=== PATIENT | male | born 1980 | race Caucasian/White ===

== ENCOUNTER 2018-09-17 11:58 | Emergency (ER) | payer OTHER ==
[~2018-09-17] VITALS: Ht 170.2 cm; Wt 80.0 kg
[2018-09-17] MEDS ORDERED: LORAZEPAM 2 MG INJ IM ONE (12:00)
--- NOTE | 2018-09-17 12:04 | ERD ---
ER Documentation Chief Complaint Chief Complaint Medical clearance HPI This is a 38-year-old man with a history of methamphetamine and drug abuse brought in by [employer] officers for medical clearance after violating a restraining order his mother had placed on him. Upon [employer] officer arrival to the scene he was agitated and somewhat combative but denies suicidal homicidal ideation. He had no trauma or falls and was transported here to help control symptoms. ROS All systems reviewed and are negative except as per history of present illness. FmHx Family History: No diabetes Physical Exam Vitals Vital Signs Date Temp Pulse Resp B/P (MAP) Pulse Ox O2 O2 Flow FiO2 Time Delivery Rate 09/17/18 155 20 161/107 97 Room Air 12:26 (125) 09/17/18 97.9 20 12:10 Per nurse's records Physical Exam GENERAL: Well-developed, well-nourished, agitated appears intoxicated, afebrile HEENT: Moist mucous membranes, pink conjunctiva, no cervical spine tenderness or step-off deformities NEURO: Alert and oriented 3, cranial nerves II through XII intact bilaterally, gait normal, agitated, moving all extremities, no focal deficits CARDIAC: Tachycardic and regular no murmurs rubs or gallops LUNGS: Clear bilaterally no wheezing crackles or stridor SKIN: Warm and dry to touch, no abrasions, contusions, or hematomas, no lacerations, no ecchymosis, no target lesions, and without ulcers EXTREMITIES: No clubbing cyanosis or edema, calves are bilaterally symmetrical, no Homans sign, no popliteal cord sign. Distal pulses equal and bilateral PSYCH: Agitated Results 24 hrs Current Medications Medications Dose Sig/Portia Start Time Status Last (Trade) Ordered Route PRN Stop Time Admin Dose Reason Admin Lorazepam 1 mg ONCE ONCE 09/17/18 DC 09/17/18 (Ativan) IM 12:00 12:09 09/17/18 12:01 Procedures/MDM I administered lorazepam 1 mg IM x1 Patient's initial tachycardia and hypertension improved, it appears intoxicated with methamphetamines and does have a history of drug abuse. He has no signs of injury or trauma he is afebrile and looks well, his tachycardia improved and he will be discharged and is okay to book. Patient discharged under [employer] custody Differential diagnoses considered, included but not limited to acute coronary syndrome, pulmonary embolism, aortic dissection, abdominal aortic aneurysm, sepsis, stroke, meningitis, encephalitis, pneumonia, appendicitis, cholecystitis, bowel obstruction, pyelonephritis, nephrolithiasis, cystitis, as well as metabolic, hematologic, and electrolyte abnormalities. As well as abscess, cellulitis, fractures, and dislocations. Patient feels much better at this time, and vital signs are normal, symptoms have improved. I did give strict instructions to return to the ED if symptoms continue or worsen, patient will otherwise follow-up with primary care physician. Patient understood instructions and agreed to plan. Disclaimer: Inadvertent spelling and grammatical errors are likely due to EHR/dictation software use and do not reflect on the overall quality of patient care. Also, please note that the electronic time recorded on this note does not necessarily reflect the actual time of the patient encounter. Departure Diagnosis: Primary Impression: Methamphetamine abuse Condition: Stable Patient Instructions: Drug Abuse, Alf Clearance RONAK MARR MD September 17, 2018 12:04
[2018-09-17 12:10] VITALS: Ht 170.2 cm; Wt 80.0 kg
[2018-09-17 12:26] VITALS: BP 161/107; PULSE 155; RESP 20
== END 2018-09-17 13:01 | disposition home or self-care (01) ==
LOC: E/R 11:58
DX: F15.10 Other stimulant abuse, uncomplicated (principal)
CPT/HCPCS: 96372; 99284; J2060